=== PATIENT | male | born 1980 | race Caucasian/White ===

== ENCOUNTER 2025-06-30 05:06 | Emergency (ER) | payer OTHER, SELFPAY ==
[2025-06-30] VITALS (28 sets, daily range): BP systolic 174–212; BP diastolic 92–125; PULSE 60–85; RESP 9–22; TEMP 36.5; O2SAT 88–100; BMI 50.1
--- OUTSIDE RECORDS SUMMARY | 2025-06-30 05:09 | XMS_ITS | Clinical Summary ---
Author Organization [facility] [employer] [facility] Address [address] [place] [id number] Care Team Providers Care Eyeglass Maker Name Role Phone Kenneth Rios MD Primary Care Provider Marisel Meadows OPERATIONS RESEARCH GROUP MANAGER Unavailable [phone] Allergies Active Allergy Reactions Criticality Noted Date Comments Homeopathic Products 12/20/2007 Medications CPAPIndications: Severe obstructive sleep apnea CPAP (E0601) machine for home use at pressure: 15 with EPR 3 , Choice of mask (A7030 or A7034) w/full face cushion (A7031) x1/mo, nasal cushion (A7032) x2/mo, or nasal pillows (A7033) x 2/mo; Length of Need: 99 months; Frequency of use: Daily 1 Each 11 4 Active buPROPion (WELLBUTRIN XL) 150 mg Extended-Release tabletIndication s:Anxiety and depression TAKE 1 TABLET(150 MG) BY MOUTH DAILY IN THE MORNING 90 Tablet 1 5 Active losartan-hydroch lorothiazide (50-12.5 mg) 50-12.5 mg tabletIndication s:Benign essential HTN TAKE 1 TABLET BY MOUTH DAILY 90 Tablet 5 Active Active Problems Problem Noted Date Diagnosed Date Chronic pain of right knee 05/06/2024 Anxiety and depression 12/10/2019 Obesity 12/24/2013 Encounters Date Type Department Care Team Description 05/09/2025 Refill [facility] [address] [place], [place] [id number] Kenneth Rios MD Refill Request (Losartan-hydrochlorothi azide (50-12.5 Mg)) from Last 3 Months Immunizations Immunization Administration Dates Next Due COVID-19 VACCINE SPIKEVAX (Shelby QUINTERO 50MCG/0.5ML) 12YO+ PFS 05/06/2024 COVID-19 vaccine (Alie-J&J) PF, MDV Influenza, IIV3 (Age >=3 years) 11/10/2013,08/29 Influenza, IIV4 10/25/2021,08/22/2019 Influenza, IIV4 (=>6mos) MDV 08/03/2018 Tdap 05/06/2024,05/06/2012 Family History Medical History Relation Name Comments Anxiety disorder Brother 1 Diabetes Brother 2 at 50, lik no sleep apnea Alcohol/Drug Brother 3 jayro Arthritis Father Cancer Maternal Grandmother lung Diabetes Mother Psychiatric illness Mother Cancer-colon No Family History Cancer-prostate No Family History Heart attack No Family History Relation Name Status Comments Brother 1 Alive Brother 2 Alive Brother 3 jayro Alive Father Alive Maternal Grandfather Alive Maternal Grandmother Alive Mother Alive Paternal Grandfather Paternal Grandmother Alive Sister 1 Alive Sister 2 Alive Social History Tobacco Use Types Packs/Day Years Used Date Smoking Tobacco: Former Cigarettes Q uit: 11/26/2009 Smokeless Tobacco: Never Tobacco Cessation:Counseling Given: No 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 4 05/06/2024 Financial Resource Strain Answer Date R ecorded Difficulty of Paying Living Expenses Not on file 05/06/2024 Difficulty of Paying Living Expenses 3 05/06/2024 Food Insecurity Answer Date Recorded Do you worry your food will run out before you are able to buy more? 2 05/06/2024 Transportation Needs Answer Date Record ed Does lack of transportation keep you from medica l appointments? 1 05/06/2024 Does lack of transportation keep you from work, meetings or getting things that you need? 1 05/06/2024 Housing Stability Answer Date Recorded What is your housing situation today? 1 05/06/2024 Utilities Answer Date Recorded Do you have trouble paying f or utilities (for example, heat, electricity, water, phone)? 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 Not on file Not on file Obstetrics History Last Filed Vital Signs Vital Sign Reading Time Taken Comments Blood Pressure 197/104 12/14/2024 12:10 PM CISCO CONSULTANT Pulse 73 12/14/2024 12:10 PM CISCO CONSULTANT Temperature 37.2 C (98.9 F) 12/14/2024 12:10 PM CISCO CONSULTANT Respiratory Rate 16 12/14/2024 12:1 0 PM CISCO CONSULTANT Oxygen Saturation 94% 12/14/2024 12: 10 PM CISCO CONSULTANT Inhaled Oxygen Concentration - - Weight 188.9 kg (416 lb 6.4 oz) 025 12:10 PM CISCO CONSULTANT Height 183.6 cm (6' 0.28) 05/06/2024 3:54 PM CD T Body Mass Index 56.03 05/06/2024 3:54 PM CDT Plan of Treatment Health Maintenance Due Date Last Done Comments Hepatitis B series for 19+ (1 of 3 - 19+ 3-dose series) 2000 COVID-19 vaccine series ( season) 2024 05/06/2024, 10/25/2021, 02/05/2021 BMI (ht and wt on same day) for age 18+ 05/06/2025 05/06/2024, 12/07/2022, 07/27/2022, Additional history exists Depression screening for age 12+ 05/06/2025 05/06/2024, 05/06/2024, 07/27/2022, Additional history exists Influenza Vaccine (#1) 2025 , 08/22/2019, 08/03/2018, Additional history exists Lipids for age 35-44 05/06/2029 05/06/2024, 05/08/2019, 04/09/2017, Additional history exists Tetanus booster 05/06/2034 05/06/2024, 04/26, 05/06/2012 HIV for age 15-65 Completed 05/06/2024 Hepatitis C screening for age 18-79 Completed 05/06/2024 Pneumococcal series for age 6-49 Aged Out No longer eligible based on patient's age to complete this topic Procedures Procedure Name Priority Date/Time Associated Diagnosis Comments ANTI HIV 1/2 Routine 05/06/2024 4:44 PM CDT Screening for HIV (human immunodeficiency virus) ANTI HCV Routine 05/06/2024 4:44 PM CDT Need for hepatitis C screening test LIPID PANEL W REFLEX MEASURED LDL Routine 05/06/2024 4:44 PM CDT Lipid screening from Last 3 Months or Most Recently Relevant to Health Maintenance Results * (ABNORMAL) LIPID PANEL W REFLEX MEASURED LDL (05/06/2024 4:44 PM CDT) CHOLESTEROL,TOTAL 203(H) 100 - 199 mg/dL 05/07/2024 4:50 PM CDT [facility] Comment: Cholesterol, Total Reference Ranges Desirable <200 mg/dL Borderline 200-239 mg/dL High >=240 mg/dL TRIGLYCERIDES 217(H) <150 mg/dL 05/07/2024 4:50 PM CDT [facility] HDL CHOLESTEROL 37(L) >40 mg/dL 4:50 PM CDT [facility] NON-HDL CHOLESTEROL 166(H) <145 mg/dl 05/07/2024 4:50 PM CDT [facility] CHOL/HDL RATIO 5.49(H) <4.50 05/07/2024 4:50 PM CDT [facility] LDL CHOLESTEROL 123 <=130 mg/dL 05/07/2024 4:50 PM CDT [facility] VLDL CHOLESTEROL 43(H) <=30 mg/dL 05/07/2024 4:50 PM CDT [facility] PROVIDER ORDERED STATUS RANDOM 05/07/2024 4:50 PM CDT [facility] Blood BLOOD SPECIMEN / Unknown Venipuncture / Unknown 05/06/2024 4:44 PM CDT 05/06/2024 4:46 PM CDT Kenneth Riso MD CHEMISTRY Final Result Performing Organization Address [facility] Co de Phone Number [facility] [address] [place] [id number], [place] * ANTI HCV (05/06/2024 4:44 PM CDT) [facility] HEPATITIS C ANTIBODY Non-Reacti ve Non-React jasmin 05/07/2024 4:32 PM CDT [facility] Comment:Please note, per www .CDC.gov: If a patient is known to be at high risk of HCV infection, or is symptomatic, and the physician's suspicion of HCV infection is high, HCV RNA testing is often employed and is of diagnostic value, even after an initial negative anti-HCV test result. Blood BLOOD SPECIMEN / Unknown Venipuncture / Unknown 05/06/2024 4:44 PM CDT 05/06/2024 4:46 PM CDT us Kenneth Rios MD SEND OUTS Final Result Performing Organization Address [facility] de Phone Number [facility] [address] [place] [address], [place] * ANTI HIV 1/2 (05/06/2024 4:44 PM CDT) [facility] HIV-1/HIV-2 SCREEN Non-Reacti ve Non-Reacti ve 05/07/2024 4:35 PM CDT [facility] Comment:HIV-1 p24 and HIV-1/ HIV-2 Ab Not Detected. Blood BLOOD SPECIMEN / Unknown Venipuncture / Unknown 05/06/2024 4:44 PM CDT 05/06/2024 4:46 PM CDT Kenneth Rios MD SEND OUTS Final Result Performing Organization Address City/State/[facility] Co de Phone Number [facility] [address] [place] [address], from Last 3 Months or Most Recently Relevant to Health Maintenance Insurance [employer] Care Teams Eyeglass Maker Relationship Specialty Start Date End Date Kenneth Rios MD [address] [place] [address] PCP - General Family Practice 12/10/19 Marisel Meadows NP [address] [place] [address] Sleep Medicine 07/23/24
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
--- NOTE | 2025-06-30 05:44 | CRLHL7_ITS ---
For Patients: As a result of the Century Cures Act, medical imaging exams and procedure reports are released immediately into your electronic medical record. You may view this report before your referring provider. If you have questions, please contact your health care provider. INDICATION: Chest pain. TECHNIQUE: Chest 1 views. COMPARISON: None FINDINGS: Cardiovasculature and mediastinum: Cardiomegaly, which is exaggerated by projection. Unremarkable mediastinum. Lungs and pleural spaces: Lungs are clear. No pneumothorax or pleural effusion. Bones and soft tissues: No significant findings. IMPRESSION: No acute findings. Cardiomegaly, which is exaggerated by projection. Dictated by Vanessa Street MD @ 06/30/2025 6:38:01 AM (Electronically Signed)
[2025-06-30 05:53] LABS: Troponin, Point-of-Care* 0.02 ng/ml (0.01-0.04)
[2025-06-30 05:54] LABS: Hematocrit 46.9 % (37.0-53.0); Hemoglobin* 15.3 gm/dL (13.5-17.5); Immature Granulocytes Abs Auto 0.02 K/uL (0.00-0.30); Immature Granulocytes Pct Auto 0.4 %; Lymphocytes Absolute Auto 1.62 K/uL (0.90-2.90); Mean Corpuscular HGB Conc 33 gm/dL (32-36); Mean Corpuscular Hemoglobin 32 pg (26-34); Mean Corpuscular Volume 99 fL (80-100); RDW Coefficient of Variation % 12.7 % (11.5-15.5); Red Blood Count 4.76 m/uL (4.30-5.90); White Blood Count* 5.49 K/uL (4.50-11.00)
[2025-06-30 06:02] LABS: Slide Review Reflex No
[2025-06-30 06:04] LABS: Albumin* 3.9 g/dL (3.3-5.0); Chloride* 97 mmol/L (96-114); Sodium* 133 mmol/L (135-149)
[2025-06-30 06:05] LABS: Potassium* 4.4 mmol/L (3.6-5.1)
[2025-06-30 06:07] LABS: Blood Urea Nitrogen* 21 mg/dL (5-24); Creatinine* 1.0 mg/dL (0.5-1.5); Est. Creatinine Clearance* 109.60; Estimated Glomerular Filt Rate 95 ml/min
[2025-06-30 06:08] LABS: Alanine Aminotransferase* 57 U/L (4-50); Alkaline Phosphatase* 62 U/L (40-150); Anion Gap 4 mEq/L (7-15); Aspartate Amino Transferase* 58 U/L (12-35); Bilirubin Direct* 0.1 mg/dL (0.0-0.5); Bilirubin Total* 0.9 mg/dL (0.1-1.5); Calcium* 9.1 mg/dL (8.4-10.6); Carbon Dioxide* 32 mmol/L (20-32); Glucose* 126 mg/dL (60-115); Total Protein* 7.2 g/dL (6.0-8.3)
[2025-06-30 06:18] LABS: NT Pro B Type NatriureticPept* 843 pg/mL (See Note)
[2025-06-30 06:20] LABS: D Dimer Quantitative* 1.30 ug/ml (0.00-0.50)
--- NOTE | 2025-06-30 06:48 | CRLHL7_ITS ---
For Patients: As a result of the Century Cures Act, medical imaging exams and procedure reports are released immediately into your electronic medical record. You may view this report before your referring provider. If you have questions, please contact your health care provider. INDICATION: Chest pain TECHNIQUE: CT chest PE was acquired with 100 cc Isovue 370 IV contrast. COMPARISON: None. FINDINGS: Thyroid: Unremarkable. Heart and vasculature: Contrast opacification of the pulmonary arterial tree is adequate. No sign of pulmonary embolism. Enlarged pulmonary trunk measuring 3.4 centimeters, which can be seen with pulmonary hypertension. Mild cardiomegaly. Thoracic aorta and pulmonary artery are normal in caliber. Lungs and pleura: No suspicious nodules or infiltrates. No pleural effusions, pleural thickening, or pneumothorax. Lymph nodes/mediastinum: No mediastinal, hilar, or axillary adenopathy. Chest wall: No masses. Upper abdomen: No acute or significant findings. Bones: Unremarkable for age. IMPRESSION: No pulmonary embolism. Enlarged pulmonary trunk, which can be seen with underlying pulmonary hypertension. Mild cardiomegaly. Please note that all CT scans at this facility use dose modulation, iterative reconstruction, and/or weight-based dosing when appropriate to reduce radiation dose to as low as reasonably achievable. Dictated by Vanessa Street MD @ 06/30/2025 7:34:37 AM (Electronically Signed)
[2025-06-30] MEDS: 0.9 % SODIUM CHLORIDE 500 ML 500 ML IV (07:36)
[2025-06-30 07:45] LABS: Troponin, Point-of-Care* 0.03 ng/ml (0.01-0.04)
[2025-06-30] MEDS: ALBUTEROL SULFATE 2.5 MG/3 ML VIAL.NEB NEB (08:00)
== END 2025-06-30 09:24 | disposition home or self-care (01) ==
PROVIDERS: Emergency Provider Family Medicine; PCP Family Medicine
DX: R07.9 Chest pain, unspecified (principal)
CPT/HCPCS: 36415; 71045; 71275; 80048; 80076; 83690; 83880; 84484; 85025; 85379; 86140; 93005; 94640; 94761; 99284; 99285; J7030; Q9967